=== PATIENT | male | born 1970 | race American Indian/Alaskan Native ===

== ENCOUNTER 2019-01-17 08:55 | Day surgery (SDC) | payer BC ==
--- NOTE | 2019-01-17 09:44 | Anesthesia Day of Surgery ---
Anesthesia Day of Surgery - Day of Surgery Patient Examined: Yes Patient H&P Reviewed: Yes Patient is NPO: Yes
[2019-01-17] MEDS ORDERED: ONDANSETRON 4 MG/2 ML INJ IV PRN (09:45)
[2019-01-17] MEDS ORDERED: fentaNYL 100 MCG/2 ML INJ IV PRN (09:45)
--- NOTE | 2019-01-17 09:45 | Anesthesia Consultation ---
Anesthesia Consult and Med Hx Date of service: 01/17/19 - Airway Anesthetic Teeth Evaluation: Chipped ROM Head & Neck: Adequate Mental/Hyoid Distance: Adequate Mallampati Class: Class II Intubation Access Assessment: Good - Pre-Operative Health Status ASA Pre-Surgery Classification: ASA2 Proposed Anesthetic Plan: General - Pulmonary Hx Smoking: No Hx Sleep Apnea: No (JOHNNY PRE SCREEN LOW RISK) - Cardiovascular System Hx Hypertension: Yes (X 3 YRS) - Gastrointestinal Hx Gastroesophageal Reflux Disease: Yes (Dietary) - Hematic Hx Anemia: Yes ( CHILD ONLY) - Other Systems Hx Cancer: No
[2019-01-17] MEDS ORDERED: LACTATED RINGERS 1,000 ML IV SCH (10:00)
[2019-01-17] MEDS ORDERED: PROPOFOL 200 MG/20 ML VIAL IV ONE (11:15)
[2019-01-17] MEDS ORDERED: fentaNYL 100 MCG/2 ML INJ ONE (11:15)
[2019-01-17] MEDS ORDERED: ONDANSETRON 4 MG/2 ML INJ ONE (11:30)
[2019-01-17] MEDS ORDERED: dexAMETHasone 20 MG/5 ML VIAL ONE (11:30)
[2019-01-17] MEDS ORDERED: WATER FOR IRRIG STERILE 2000 ML IR ONE (11:45)
[2019-01-17] MEDS ORDERED: GENTAMICIN/NS 80 MG/100 ML 100 ML IV ONE (12:04)
[2019-01-17] MEDS ORDERED: PHENYLEPHRINE/NS 1,000 MCG/10 ML SYRINGE (OR USE) IV ONE (12:14)
[2019-01-17] MEDS ORDERED: LIDOCAINE MPF (2%) 20 MG/1 ML VIAL 5 ML ONE (12:16)
--- NOTE | 2019-01-17 12:22 | Short Stay Summary ---
Short Stay Documentation Date of service: 01/17/19 - History H&P: obtained from office - Allergies and Medications Current Medications: Allergies Penicillins Allergy (Verified 01/06/19 10:11) Unknown HAD REACTION A CHILD- WAS TOLD NOT TO TAKE IT AGAIN Home Medications Medication Instructions Recorded Confirmed Last Taken Type AtorvaSTATin [Lipitor] 20 mg PO QHS 01/12/19 01/17/19 01/12/19 20:00 History HYDROcodone/APAP 5-325 [[place] 1 each PO Q4HR PRN 01/12/19 01/12/19 Unknown History 5/325] Ketorolac [Toradol] 10 mg PO Q4HR PRN 01/12/19 01/12/19 Unknown History Tamsulosin [Flomax] 0.4 mg PO QDAY 01/12/19 01/17/19 01/12/19 09:00 History amLODIPine [Norvasc] 5 mg PO DAILY 01/12/19 01/17/19 01/17/19 05:00 History Active Medications Fentanyl (Sublimaze) 50 mcg IV Q5MIN PRN PRN Reason: Pain , Severe (7-10) Stop: 01/17/19 20:00 Lactated Ringer's (Lactated Ringers) 1,000 mls @ 125 mls/hr IV DIRECT BARBARA Last Admin: 01/17/19 10:20 Dose: 125 mls/hr Documented by: Gentamicin Sulfate/Sodium Chloride (Gentamicin/Ns 80 Mg/100 Ml) 100 mls @ 196.078 mls/hr IV ONCE ONE; Protocol Stop: 01/17/19 12:34 Ondansetron HCl (Zofran) 4 mg IV ONCE PRN PRN Reason: Nausea And Vomiting Stop: 01/17/19 13:00 - Brief post op/procedure progress note Date of procedure: 01/17/19 Pre-op diagnosis: left ureteral stone Post-op diagnosis: same Procedure: cysto, rpg, left uretersocopy, stent with external string Surgeon: MARILEE BARTON Estimated blood loss: none Condition: stable - Hospital course Hospital course: bactrim, norco, ultram, post op info on chart - Disposition Condition at discharge: Stable Short Stay Discharge Plan Follow up with: NEHA PAULINO MD [Primary Care Provider] - 7 Days
--- NOTE | 2019-01-17 12:32 | Operative Report ---
PREOPERATIVE DIAGNOSIS: Left [address] POSTOPERATIVE DIAGNOSIS: Left [address] PROCEDURE: Cystoscopy, bilateral retrograde pyelograms, left ureteroscopy, and double-J stent placement (6-South African 24 cm with an external string). SURGEON: Micha Parrish MD. ANESTHESIA: General. ESTIMATED BLOOD LOSS: Minimal. FLUIDS: Crystalloid. COMPLICATIONS: No complications. INDICATIONS: This is a 48-year-old gentleman seen in the office with the intermittent left flank pain. He was originally seen by Dr. Gonzalez in our group with conservative therapy. His symptoms persist. Discussed an intervention versus observation. He called the office recently, wanting to proceed with a surgical intervention. DESCRIPTION OF PROCEDURE: The patient was taken to the operative suite and placed in a supine position. After adequate general anesthesia, placed in a dorsal lithotomy position and prepped and draped in a sterile fashion. Pancystourethroscopy was performed with 22-South African Storz cystoscope. No urethral abnormalities. Prostate nonobstructing. Bladder, no tumors or stones were noted. Bilateral retrograde pyelograms were obtained with an 8-South African Goodrich catheter and 8 mL of contrast. No filling defects or obstruction on the right. The left side had some irregularity of the distal ureter. Based on these findings, two 0.035 Glidewires were placed. Rigid ureteroscopy up to the renal pelvis was performed. No obvious stone could be appreciated. There was a fair amount of mucus noted in the ureter. He may have recently passed the stone. Ureteroscope was removed. A 6-South African, 24 cm double-J stent was placed under fluoroscopy with an external string. Bladder was drained. Rectal exam was benign. He was extubated and taken to the recovery room. He will go home on [place], Ultram, and Bactrim and follow up in the office. JOB# [id number] [facility]
--- NOTE | 2019-01-17 14:05 | Fluoroscopy Report ---
INTRAOPERATIVE FLUOROSCOPY: RETROGRADE UROGRAPHY. INDICATION / CLINICAL INFORMATION: LT URETERAL STONE. TECHNIQUE: Intraoperative spot images were obtained during the procedure. FINDINGS: Bilateral retrograde pyelogram performed. Left ureteral stent placed. 10 mL of IV Omnipaque 300 used. Fluoroscopy Time: 27 seconds. Fluoroscopy Images: 9. Signer Name: Geovanni Tom MD Signed: 01/17/2019 2:00 PM Workstation Name: [id number]
--- NOTE | 2019-01-17 18:16 | Post Anesthesia Evaluation ---
- Post Anesthesia Evaluation Patient Participated: Yes Airway Patent: Yes Stable Respiratory Function: Yes Nausea/Vomiting: No Temp > 96.8F: Yes Pain Manageable: Yes Adequeate Hydration: Yes Anesthesia Complications: No Block Receding Appropriately: Not Applicable Patient on Ventilator: No
[2019-01-17 21:47] VITALS: BP 143/88
== END 2019-01-17 08:56 | disposition home or self-care (01) ==
LOC: OR 08:55
PROVIDERS: ATTEND Urology
DX: N20.1 Calculus of ureter (principal); I10 Essential (primary) hypertension; K21.9 Gastro-esophageal reflux disease without esophagitis; Z88.0 Allergy status to penicillin; Z79.899 Other long term (current) drug therapy; Z98.890 Other specified postprocedural states; Z86.2 Personal history of diseases of the blood and blood-forming organs and certain disorders involving the immune mechanism
CPT/HCPCS: 52332; 74420; A4217; C1758; C1769; C2617; J1100; J1580; J2370; J2405; J2704; J3010; J7120; Q9967